=== PATIENT | male | born 1970 | race Caucasian/White ===

== ENCOUNTER 2017-10-10 17:02 | Emergency (ER) | payer SELFPAY ==
[~2017-10-10 17:02] MED LIST: AMLO5 PO; LISI40TA PO; PROT40TA PO; ZOFR4TAB3 SL
[2017-10-10 17:15] VITALS: BP 218/145; PULSE 104; RESP 18; TEMP 98.7; O2SAT 98
[2017-10-10 18:45] LABS: ALBUMIN 3.4 GM/DL (3.4-5.0); ALT (GPT) 32 U/L (12-78); AST (GOT) 21 U/L (15-37); BLOOD UREA NITROGEN 23 MG/DL (7-18); CALCIUM 9.1 MG/DL (8.5-10.1); CHLORIDE 103 MEQ/L (98-107); CREATININE 1.49 MG/DL (0.60-1.30); GLOMERULAR FILTRATION RATE 50 ML/MIN (>89); GLUCOSE,RANDOM 124 MG/DL (74-106); SODIUM (NA) 139 MEQ/L (136-145)
[2017-10-10 18:50] LABS: ALKALINE PHOSPHATASE 89 U/L (45-117); TOTAL BILIRUBIN ADULT 0.3 MG/DL (0.2-1.0); TOTAL PROTEIN 7.2 GM/DL (6.4-8.2)
[2017-10-10 19:49] LABS: AUTOMATED NEUTROPHIL # 8.1 TH/MM3 (1.8-7.7); BASOPHIL % 0.2 % (0.0-2.0); EOSINOPHIL # 0.2 TH/MM3 (0-0.4); EOSINOPHIL % 1.6 % (0.0-4.0); HEMATOCRIT 44.1 % (39.0-51.0); HEMOGLOBIN 14.8 GM/DL (13.0-17.0); LYMPH % 11.8 % (9.0-44.0); LYMPHOCYTE # 1.2 TH/MM3 (1.0-4.8); MEAN CELL VOLUME 88.1 FL (80.0-100.0); MEAN CORPUSCULAR HEMOGLOBIN 29.6 PG (27.0-34.0); MEAN CORPUSCULAR HGB CONC 33.6 % (32.0-36.0); MEAN PLATELET VOLUME 9.7 FL (7.0-11.0); MONO % 5.6 % (0.0-8.0); MONOCYTE # 0.6 TH/MM3 (0-0.9); NEUT % 80.8 % (16.0-70.0); PLATELET COUNT 265 TH/MM3 (150-450); RED CELL DISTRIBUTION WIDTH 13.7 % (11.6-17.2); WHITE BLOOD COUNT 10.1 TH/MM3 (4.0-11.0)
[2017-10-10] MEDS ORDERED: CEPHALEXIN MONOHYDRATE 500 MG CAP PO ONE (20:15)
[2017-10-10] MEDS ORDERED: SULFAMETHOXAZOLE-TRIMETHOPRIM DS 800-160 MG TAB PO ONE (20:15)
[2017-10-10] MEDS ORDERED: BACT800T5 PO (20:21)
[2017-10-10] MEDS ORDERED: CEPH-460 PO (20:21)
--- NOTE | 2017-10-10 20:21 | PD ---
HPI Chief Complaint: Skin Problem Time Seen by Provider: 20:01 Travel History International Travel<30 days: No Contact w/Intl Traveler<30days: No Traveled to known affect area: No History of Present Illness HPI 47-year-old male here for evaluation of painful infection to his right medial thigh. The patient reports that it started about a week ago as a small pimple. He has squeezed the area and it has gradually increased in size. He has had subjective fevers and chills. He is not diabetic and does not take any medications. Pain is moderate, constant, worse with movements and palpation. He has taken Advil with mild relief of symptoms. [facility] Past Medical History Diminished Hearing: No Hypertension: Yes Immunizations Current: Yes Past Surgical History Appendectomy: Yes Social History Alcohol Use: Yes (OCCASIONAL) Tobacco Use: No Substance Use: No Allergies-Medications (Allergen,Severity, Reaction): Coded Allergies: No Known Allergies (Verified Adverse Reaction, Unknown, 10/10/17) Reported Meds & Prescriptions Reported Meds & Active Scripts Active No Active Prescriptions or Reported Medications Review of Systems Except as stated in HPI: all other systems reviewed are Neg Physical Exam Narrative GENERAL: Well-developed, well-nourished, audible, no apparent distress. SKIN: Right mid/anterior/medial thigh with a 6 x 7 cm area of erythema with central induration with an open wound that has been draining spontaneously. There is no fluctuance. No crepitus. No red streaks. This area was evaluated using a bedside linear ultrasound probe and shows cobblestoning which is consistent with cellulitis, no drainable fluid collection. HEAD: Atraumatic. Normocephalic. EYES: Pupils equal and round. No scleral icterus. No injection or drainage. ENT: Mucous membranes pink and moist. CARDIOVASCULAR: Regular rate and rhythm. RESPIRATORY: No accessory muscle use. Clear to auscultation. Breath sounds equal bilaterally. MUSCULOSKELETAL: No obvious deformities. No clubbing. No cyanosis. No edema. NEUROLOGICAL: Awake and alert. No obvious cranial nerve deficits. Motor grossly within normal limits. Normal speech. PSYCHIATRIC: Appropriate mood and affect; insight and judgment normal. Data Data Last Documented VS Vital Signs Date Time Temp Pulse Resp B/P (MAP) Pulse Ox O2 Delivery O2 Flow Rate FiO2 10/10/17 20:08 20 10/10/17 17:15 98.7 104 218/145 (169) 98 Orders Orders Complete Blood Count With Diff (10/10/17 17:18) Comprehensive Metabolic Panel (10/10/17 17:18) Sulfamet-Trimeth Ds 800-160 Mg (Bactrim (10/10/17 20:15) Cephalexin (Keflex) (10/10/17 20:15) Labs Laboratory Tests Test 10/10/17 17:48 White Blood Count 10.1 TH/MM3 Red Blood Count 5.00 MIL/MM3 Hemoglobin 14.8 GM/DL Hematocrit 44.1 % Mean Corpuscular Volume 88.1 FL Mean Corpuscular Hemoglobin 29.6 PG Mean Corpuscular Hemoglobin Concent 33.6 % Red Cell Distribution Width 13.7 % Platelet Count 265 TH/MM3 Mean Platelet Volume 9.7 FL Neutrophils (%) (Auto) 80.8 % Lymphocytes (%) (Auto) 11.8 % Monocytes (%) (Auto) 5.6 % Eosinophils (%) (Auto) 1.6 % Basophils (%) (Auto) 0.2 % Neutrophils # (Auto) 8.1 TH/MM3 Lymphocytes # (Auto) 1.2 TH/MM3 Monocytes # (Auto) 0.6 TH/MM3 Eosinophils # (Auto) 0.2 TH/MM3 Basophils # (Auto) 0.0 TH/MM3 CBC Comment DIFF FINAL Differential Comment Blood Urea Nitrogen 23 MG/DL Creatinine 1.49 MG/DL Random Glucose 124 MG/DL Total Protein 7.2 GM/DL Albumin 3.4 GM/DL Calcium Level 9.1 MG/DL Alkaline Phosphatase 89 U/L Aspartate Amino Transf (AST/SGOT) 21 U/L Alanine Aminotransferase (ALT/SGPT) 32 U/L Total Bilirubin 0.3 MG/DL Sodium Level 139 MEQ/L Potassium Level 4.1 MEQ/L Chloride Level 103 MEQ/L Carbon Dioxide Level 28.0 MEQ/L Anion Gap 8 MEQ/L Estimat Glomerular Filtration Rate 50 ML/MIN MDM Medical Decision Making Medical Screen Exam Complete: Yes Emergency Medical Condition: Yes Medical Record Reviewed: Yes Differential Diagnosis Cellulitis, abscess Narrative Course Vital signs reviewed. Patient's blood pressure is 218/185. He is not displaying any signs or symptoms of hypertensive crisis. Patient has a 6 x 7 cm of cellulitis to his right mid/anterior/medial thigh with a central area that appears to have been draining spontaneously with induration centrally, no fluctuance. This area was evaluated using a linear ultrasound probe and shows cobblestoning which is consistent with cellulitis, no drainable fluid collection seen. CBC is essentially unremarkable. CMP is remarkable for BUN 23, creatinine 1.49, GFR 50. Plan at this time is to start the patient on Bactrim and Keflex and have him return to the emergency department in 48 hours for a wound check. I will also provide him information to the [facility] where he should establish with a primary care physician to help him with his blood pressure and any other medical problems. He was advised on when to return to the emergency department sooner. He verbalizes understanding and agreement with plan. Procedures Procedure Narrative Bedside ultrasound: Using the linear ultrasound probe, the area of cellulitis to the patient's right thigh was evaluated and shows cobblestoning which is consistent with cellulitis without any drainable fluid collections. Diagnosis Primary Impression: Cellulitis of right thigh Referrals: [facility] 3 days Additional Instructions: Follow-up with a primary care physician this week. Take antibiotics as prescribed. Return to the emergency department in 2 days for a wound check. Return to the emergency department sooner for worsening symptoms or any other concerns. Scripts Cephalexin (Keflex) 500 Mg Cap 500 MG PO Q8H for Infection, #30 CAP 0 Refills Prov: Kendall Orta MD 10/10/17 Sulfamethoxazole-Trimethoprim (Bactrim DS) 800-160 Mg Tab 1 TAB PO BID for Infection, #20 TAB 0 Refills Prov: Kendall Orta MD 10/10/17 Disposition: 01 DISCHARGE HOME Condition: Stable Kendall Orta MD Oct 10, 2017 20:21
== END 2017-10-10 21:03 | disposition home or self-care (01) ==
LOC: NEPD 17:02
DX: L03.115 Cellulitis of right lower limb (principal); I10 Essential (primary) hypertension
CPT/HCPCS: 80053; 85025; 86403; 87070; 87186; 87205; 99283

== ENCOUNTER 2018-09-14 02:14 | Inpatient (IN) ==
[2018-09-14] MEDS ORDERED: MethylPREDNISolone Sod Succinate Inj 125 MG/2 ML Vial IV.PUSH ONE (02:33)
--- NOTE | 2018-09-14 02:38 | ED ---
HPI General Chief Complaint: Respiratory Symptoms Stated Complaint: Sob Time Seen by Provider: 09/14/18 02:20 Source: patient Mode of arrival: ambulatory Limitations: no limitations History of Present Illness The patient is a 48-year-old male who presents to the emergency department via private vehicle for shortness of breath. The patient has a one-week history of increasing shortness of breath, worse with exertion. The patient does note a history of similar symptoms in the past secondary to bronchitis, however, denies any known history of COPD, CHF, pulmonary embolism, or DVT. The patient does have a history of hypertension, however, does not currently take any medications, he does not have a local primary physician. Symptoms are moderate and progressive over the last week, he does note a dry mostly nonproductive cough with wheezing. The patient denies any current chest pain, nausea, vomiting, diarrhea, abdominal pain, or myalgias. Complaint: Reports shortness of breath Onset (ago): week(s) Context: Reports recent illness Severity: moderate Consistency/Duration: progressively worsening Relieving factors: nothing Exacerbating factors: exertion Known history of: Reports other Associated symptoms: Reports cough Treatment prior to arrival: Reports none Related Data Home oxygen amount: none Home Medications Medication Instructions Recorded Confirmed No Known Home Medications 09/14/18 09/14/18 Allergies Allergy/AdvReac Type Severity Reaction Status Date / Time No Known Allergies Unknown Uncoded 10/10/17 20:06 Review of Systems ROS: all other systems reviewed are negative [facility] Medical History Medical History Asthma (Acute) HTN (hypertension) (Acute) Social History Social History Substance History: Active Abuse Second Hand Smoke Exposure: Yes Smoking Status: Current some day smoker Tobacco Type: Cigarettes How Often Do You Have a Drink Containing Alcohol: 4 or more times a week Recent Travel in [facility] within the Last 8 Weeks: No Recent Out of Country Travel within the Last 8 Weeks: No Substance Abuse Detail Marijuana: Substance Use Status: Active Route Used Substance Abuse: Inhalation Reason for Use: Get High Immunization History Tetanus Immunization: Unsure Exam Narrative Exam Narrative: GENERAL: Awake, alert, 48-year-old male who appears his stated age and was in moderate respiratory distress. Only able to speak in 3-4 word sentences. SKIN: Focused skin assessment warm/dry. HEAD: Atraumatic. Normocephalic. EYES: No injection or drainage. ENT: No nasal bleeding or discharge. Mucous membranes pink and moist. NECK: Trachea midline. No JVD. CARDIOVASCULAR: Regular, tachycardic with a heart rate in the 120s. RESPIRATORY: Tachypnea with a respiratory rate of 26, rhonchi noted with wheezes in all 4 lung orozco. GASTROINTESTINAL: Abdomen soft, non-tender, nondistended. No rebound tenderness. MUSCULOSKELETAL: No obvious deformities. No clubbing. No cyanosis. No edema. Calves are soft bilaterally. NEUROLOGICAL: Awake and alert. No obvious cranial nerve deficits. Motor grossly within normal limits. Normal speech. PSYCHIATRIC: Appropriate mood and affect; insight and judgment normal. Course Initial Documented Vital Signs Temperature 99 F 09/14/18 02:19 Pulse Rate 113 H 09/14/18 02:19 Respiratory Rate 36 H 09/14/18 02:19 Blood Pressure 218/140 H 09/14/18 02:19 Pulse Oximetry 87 L 09/14/18 02:19 Last Documented Vital Signs Temperature 99 F 09/14/18 02:19 Pulse Rate 98 H 09/14/18 03:30 Respiratory Rate 20 09/14/18 03:30 Blood Pressure 168/96 H 09/14/18 03:30 Pulse Oximetry 96 09/14/18 03:30 Medical Decision Making [facility] Narrative Medical decision making narrative: IV was established, labs are drawn and sent, and the patient was placed on cardiac telemetry monitoring and continuous pulse oximetry monitoring. Patient was administered Solu-Medrol 125 mg intravenously and duo nebs x3. Chest x-ray was obtained. Chest x-ray reveals bilateral interstitial infiltrates. Troponin was elevated at 0.07. BNP was minimally elevated in the 200s. D-dimer was greater than 2, therefore, CTA pulmonary angiogram was ordered. CTA pulmonary angiogram reveals diffuse bilateral interstitial infiltrates with enlarged lymph nodes, may be reactive. Therefore , patient will be treated for pneumonia with Rocephin and Zithromax. Blood cultures and lactic acid were sent to lab prior to antibiotics. The patient was hypoxic, requiring oxygen at 3 L to maintain an O2 saturation of 95%. Therefore, the on-call medical service was paged for admission. Medical Screen Exam Complete: Yes Emergency Medical Condition: Yes Differential Diagnosis Differential Diagnosis: Differential diagnosis includes bronchitis, pneumonia, congestive heart failure, pleural effusion, pulmonary edema, pulmonary embolism , ACS. Lab Data Result diagrams: 09/14/18 02:40 09/14/18 02:40 Lab Results 09/14/18 09/14/18 09/14/18 Range/Units 02:40 02:40 02:40 WBC 9.5 (4.0-11.0) th/mm3 RBC 4.93 (4.50-5.90) mil/mm3 Hgb 15.3 (13.0-17.0) gm/dL Hct 43.4 (39.0-51.0) % MCV 88.0 (80.0-100.0) fL MCH 31.1 (27.0-34.0) pg MCHC 35.3 (32.0-36.0) % RDW 14.6 (11.6-17.2) % Plt Count 303 (150-450) th/mm3 MPV 8.8 (7.0-11.0) fL Neut % (Auto) 69.1 (16.0-70.0) % Lymph % (Auto) 21.5 (9.0-44.0) % Republic % (Auto) 6.2 (0.0-8.0) % Eos % (Auto) 2.5 (0.0-4.0) % Baso % (Auto) 0.7 (0.0-2.0) % Neut # (Auto) 6.6 (1.8-7.7) th/mm3 Lymph # (Auto) 2.0 (1.0-4.8) th/mm3 Republic # (Auto) 0.6 (0.0-0.9) th/mm3 Eos # (Auto) 0.2 (0.0-0.4) th/mm3 Baso # (Auto) 0.1 (0.0-0.2) th/mm3 WBC Differential . Differential Comment Auto diff final PT 9.9 (9.8-11.6) sec INR 1.0 Ratio APTT 27.1 (23.4-31.7) sec D-Dimer Quant (PE/DVT) 2.10 H (0.00-0.50) mg/L FEU Sodium 140 (136-145) meq/L Potassium 3.4 L (3.5-5.1) meq/L Chloride 108 H (98-107) meq/L Carbon Dioxide 25.6 (21.0-32.0) meq/L Anion Gap 6 (5-15) meq/L BUN 28 H (7-18) mg/dL Creatinine 1.62 H (0.60-1.30) mg/dL Estimated GFR 45 L (>89) mL/min Random Glucose 117 H (74-106) mg/dL Calcium 8.4 L (8.5-10.1) mg/dL Magnesium 2.4 (1.5-2.5) mg/dL Total Bilirubin 0.3 (0.2-1.0) mg/dL AST 68 H (15-37) U/L ALT 63 (12-78) U/L Alkaline Phosphatase 101 (45-117) U/L Total Creatine Kinase 571 H (39-308) U/L CK-MB (CK-2) 4.9 H (0.5-3.6) ng/mL CK-MB (CK-2) % 0.9 (0.0-4.0) % Troponin I 0.07 H (0.02-0.05) ng/mL B-Natriuretic Peptide (0-100) pg/mL Total Protein 7.6 (6.4-8.2) g/dL Albumin 3.7 (3.4-5.0) g/dL 09/14/18 Range/Units 02:40 WBC (4.0-11.0) th/mm3 RBC (4.50-5.90) mil/mm3 Hgb (13.0-17.0) gm/dL Hct (39.0-51.0) % MCV (80.0-100.0) fL MCH (27.0-34.0) pg MCHC (32.0-36.0) % RDW (11.6-17.2) % Plt Count (150-450) th/mm3 MPV (7.0-11.0) fL Neut % (Auto) (16.0-70.0) % Lymph % (Auto) (9.0-44.0) % Republic % (Auto) (0.0-8.0) % Eos % (Auto) (0.0-4.0) % Baso % (Auto) (0.0-2.0) % Neut # (Auto) (1.8-7.7) th/mm3 Lymph # (Auto) (1.0-4.8) th/mm3 Republic # (Auto) (0.0-0.9) th/mm3 Eos # (Auto) (0.0-0.4) th/mm3 Baso # (Auto) (0.0-0.2) th/mm3 WBC Differential Differential Comment PT (9.8-11.6) sec INR Ratio APTT (23.4-31.7) sec D-Dimer Quant (PE/DVT) (0.00-0.50) mg/L FEU Sodium (136-145) meq/L Potassium (3.5-5.1) meq/L Chloride (98-107) meq/L Carbon Dioxide (21.0-32.0) meq/L Anion Gap (5-15) meq/L BUN (7-18) mg/dL Creatinine (0.60-1.30) mg/dL Estimated GFR (>89) mL/min Random Glucose (74-106) mg/dL Calcium (8.5-10.1) mg/dL Magnesium (1.5-2.5) mg/dL Total Bilirubin (0.2-1.0) mg/dL AST (15-37) U/L ALT (12-78) U/L Alkaline Phosphatase (45-117) U/L Total Creatine Kinase (39-308) U/L CK-MB (CK-2) (0.5-3.6) ng/mL CK-MB (CK-2) % (0.0-4.0) % Troponin I (0.02-0.05) ng/mL B-Natriuretic Peptide 289 H (0-100) pg/mL Total Protein (6.4-8.2) g/dL Albumin (3.4-5.0) g/dL Imaging Data Radiologist's impression: Chest X-Ray 09/14/18 02:33 CONCLUSION: Symmetric diffuse interstitial infiltrates Chest CTA 09/14/18 03:22 CONCLUSION: 1. No evidence of pulmonary embolism. 2. Bilateral infiltrates and effusions and hilar and mediastinal toya prominence which may be reactive but should be followed ECG Data EKG Prior to Arrival: No Attestation: I personally reviewed and interpreted this ECG as follows: Interpretation: EKG reveals sinus tachycardia with a heart rate of 114. Nonspecific T wave changes. Discharge Plan Discharge Disposition Patient Disposition: ED Admit(ED Internal Use Only) Discharge Condition Condition: Stable Discharge Details Diagnosis: Bilateral pneumonia, Hypoxia, Elevated troponin Physicians Team ED Provider: Jeremie Weiss Primary Care Provider: Primary Care ShelliKaren Rxs /Orders / Referrals /Forms Prescriptions: No Action No Known Home Medications RF: 0 Status ED Status: Pending Admission
[2018-09-14 02:46] LABS: Baso # (Auto) 0.1 th/mm3 (0.0-0.2); Baso % (Auto) 0.7 % (0.0-2.0); Eos # (Auto) 0.2 th/mm3 (0.0-0.4); Eos % (Auto) 2.5 % (0.0-4.0); Hematocrit 43.4 % (39.0-51.0); Hemoglobin 15.3 gm/dL (13.0-17.0); Lymph % (Auto) 21.5 % (9.0-44.0); Mean Corpuscular HGB Conc 35.3 % (32.0-36.0); Mean Corpuscular Hemoglobin 31.1 pg (27.0-34.0); Mean Platelet Volume 8.8 fL (7.0-11.0); Mono # (Auto) 0.6 th/mm3 (0.0-0.9); Mono % (Auto) 6.2 % (0.0-8.0); Neut # (Auto) 6.6 th/mm3 (1.8-7.7); Neut % (Auto) 69.1 % (16.0-70.0); Platelet Count 303 th/mm3 (150-450); Red Blood Count 4.93 mil/mm3 (4.50-5.90); Red Cell Distribution Width 14.6 % (11.6-17.2); White Blood Count 9.5 th/mm3 (4.0-11.0)
--- NOTE | 2018-09-14 03:04 | XR ---
EXAM DATE: 09/14/2018 3:01 AM EST AGE/SEX: 48 years / Male INDICATIONS: Difficulty breathing today. CLINICAL DATA: This is the patient's initial encounter. Patient reports that signs and symptoms have been present for 1 day and indicates a pain score of 0/10. MEDICAL/SURGICAL HISTORY: None. None. [place] [facility] [place]. . FINDINGS: Symmetric diffuse bilateral interstitial infiltrates. No evidence of effusion. Cardiac contours are s atisfactory and stable. CONCLUSION: Symmetric diffuse interstitial infiltrates Electronically signed by: Bulmaro Dejesus MD Board Certified Radiologist 09/14/2018 3:03 AM EST
[2018-09-14 03:07] LABS: Activated Partial Thrombo Time 27.1 sec (23.4-31.7); Prothrombin Time 9.9 sec (9.8-11.6)
[2018-09-14 03:08] LABS: D-Dimer 2.1 mg/L FEU (0.00-0.50)
[2018-09-14 03:15] LABS: Alanine Aminotransferase 63 U/L (12-78); Albumin 3.7 g/dL (3.4-5.0); Anion Gap 6 meq/L (5-15); Aspartate Aminotransferase 68 U/L (15-37); Blood Urea Nitrogen 28 mg/dL (7-18); Calcium 8.4 mg/dL (8.5-10.1); Carbon Dioxide 25.6 meq/L (21.0-32.0); Chloride 108 meq/L (98-107); Glomerular Filtration Rate 45 mL/min (>89); Glucose,Random 117 mg/dL (74-106); Magnesium 2.4 mg/dL (1.5-2.5); Potassium 3.4 meq/L (3.5-5.1); Sodium 140 meq/L (136-145)
[2018-09-14 03:19] LABS: Alkaline Phosphatase 101 U/L (45-117); Creatine Kinase 571 U/L (39-308); Total Protein 7.6 g/dL (6.4-8.2); Troponin I 0.07 ng/mL (0.02-0.05)
[2018-09-14 03:31] LABS: CKMB Percent 0.9 % (0.0-4.0); Creatine Kinase MB 4.9 ng/mL (0.5-3.6)
--- NOTE | 2018-09-14 05:27 | CT ---
EXAM DATE: 09/14/2018 3:54 AM EST AGE/SEX: 48 years / Male INDICATIONS: Chest pain, shortness of breath. CLINICAL DATA: This is the patient's initial encounter. Patient reports that signs and symptoms have been present for 1 day and indicates a pain score of 10/10. MEDICAL/SURGICAL HISTORY: Asthma. Hypertension. None. RADIATION DOSE: 10.62 CTDI (mGy) COMPARISON: . TECHNIQUE: Volumetric scanning was performed using a multi-row detector CT scanner during bolus infu yareli of 50 ml Visipaque 320 (iodixanol) nonionic water-soluble contrast as a single exam dose. The d palak was post processed with a variety of visualization algorithms including full volume maximum inten sity projection and sliding thin slab reformation. Using automated exposure control and adjustment o f the mA and/or kV according to patient size, radiation dose was kept as low as reasonably achievable to obtain optimal diagnostic quality images. DICOM format image data is available electronically fo r review and comparison. FINDINGS: Pulmonary Arteries: No filling defects are seen in the pulmonary arteries out to the subsegmental ve ssels. The left and right pulmonary arteries are normal in diameter. Lung: Fairly symmetric primarily central groundglass parenchymal opacities. Effusion: Small bilateral Mediastinum: Moderate prominence of central mediastinal lymph nodes and mild prominence of bilateral hilar toya tissue. Other: The axilla is unremarkable. CONCLUSION: 1. No evidence of pulmonary embolism. 2. Bilateral infiltrates and effusions and hilar and mediastinal toya prominence which may be react natasha but should be followed Electronically signed by: Bulmaro Dejesus MD Board Certified Radiologist 09/14/2018 5:26 AM EST
[2018-09-14] MEDS ORDERED: Azithromycin Inj 500 MG in Sodium Chlor 0.9% Inj 250 ML IV.SIG ONE (05:35)
[2018-09-14] MEDS ORDERED: Acetaminophen 325 MG Tablet PO PRN (06:19)
[2018-09-14 07:34] LABS: Troponin I 0.07 ng/mL (0.02-0.05)
[2018-09-14 07:46] LABS: Creatine Kinase MB 4.2 ng/mL (0.5-3.6)
--- NOTE | 2018-09-14 14:19 | P.HPIM ---
History of Present Illness Primary Care Physician: No Primary Care Physician Chief Complaint: SOB History of Present Illness: This is a 48-year-old male with history of asthma and hypertension presenting with shortness of breath for about a week, associated with exertion, cough productive with yellowish to greenish sputum, orthopnea, nocturnal dyspnea but no note of fever, chills, muscle ache, nausea, vomiting, chest pain, bilateral lower extremity swelling or palpitations. There is no history of COPD, CHF or PE. Patient is a current smoker, about 10 sticks per day. No previous history of ID or arrhythmia. Patient previously had appendicitis and lower extremity surgery. Father of a heart attack Patient current smoker, 10 cigarettes a day, drinks alcohol on the weekend, about 1 pack. Inpatient Certification Inpatient Certification: I certify that the inpatient services were ordered in accordance with Medicare regulations governing the order. This includes certification that hospital inpatient services are reasonable and necessary and in the case of services not specified as inpatient-only under 42 CFR 419.22(n), that they are appropriately provided as inpatient services in accordance to with the 2-midnight benchmark under 43 CFR 412.3(e) Estimated Total Length of Stay (Days): 2 Plans for Post Hospital Care: Home Review of Systems Review of Systems: all other systems reviewed are negative [facility] Medical History Medical History Asthma (Acute) HTN (hypertension) (Acute) Social History Social History Substance History: Active Abuse Second Hand Smoke Exposure: Yes Smoking Status: Current some day smoker Tobacco Type: Cigarettes How Often Do You Have a Drink Containing Alcohol: 4 or more times a week Recent Travel in [facility] within the Last 8 Weeks: No Recent Out of Country Travel within the Last 8 Weeks: No Substance Abuse Detail Marijuana: Substance Use Status: Active Route Used Substance Abuse: Inhalation Reason for Use: Get High Immunization History Tetanus Immunization: Unsure Medications and Allergies Allergies Allergy/AdvReac Type Severity Reaction Status Date / Time No Known Allergies Allergy Verified 09/14/18 10:19 Home Medications Medication Instructions Recorded Confirmed Type No Known Home Medications 09/14/18 09/14/18 History Active Medications: Active Medications Acetaminophen (Tylenol) 650 mg PO Q4H PRN PRN Reason: Temp > 100.4 Albuterol (Duoneb Neb (Araseli)) 1 ampul NEB Q6HR ALT NEB ARASELI Last Admin: 09/14/18 10:21 Dose: 1 ampul Enalaprilat (Vasotec Inj) 1.25 mg IV.PUSH Q6H PRN PRN Reason: SBP>160, DBP>90 Azithromycin 500 mg/ Sodium (Chloride) 250 mls @ 250 mls/hr IV.SIG Q24H ARASELI Ceftriaxone Sodium 1,000 mg/ (Sodium Chloride) 100 mls @ 200 mls/hr IV.SIG Q24H ARASELI Ondansetron HCl (Zofran Inj) 4 mg IV.PUSH Q6H PRN PRN Reason: NAUSEA OR VOMITING Sodium Chloride (Ns Flush) 2 ml IV.FLUSH PRN PRN PRN Reason: FLUSH AFTER USING IV ACCESS Sodium Chloride (Ns Flush) 2 ml IV.FLUSH BID ARASELI Last Admin: 09/14/18 08:14 Dose: Not Given Physical Exam Vital signs: Vital Signs 09/14/18 02:19 09/14/18 02:23 09/14/18 02:30 Temperature 99 F Pulse Rate 113 H 112 H Respiratory Rate 36 H 28 H 26 H Blood Pressure 218/140 H Pulse Oximetry 87 L 99 09/14/18 02:33 09/14/18 03:00 09/14/18 03:30 Temperature Pulse Rate 108 H 98 H Respiratory Rate 20 20 Blood Pressure 186/96 H 168/96 H Pulse Oximetry 95 97 96 09/14/18 06:18 09/14/18 08:00 09/14/18 08:13 Temperature Pulse Rate 90 94 H 82 Respiratory Rate 18 16 Blood Pressure 163/92 H 166/94 H Pulse Oximetry 99 98 09/14/18 10:24 09/14/18 10:25 09/14/18 11:45 Temperature 97.8 F Pulse Rate 60 88 Respiratory Rate 18 19 Blood Pressure 158/94 H Pulse Oximetry 97 97 Intake & Output 09/13/18 09/14/18 09/14/18 18:59 06:59 18:59 Intake Total 100 / 100 250 / 250 Output Total 650 / 650 Balance -550 / -550 250 / 250 Weight 88.451 kg Intake: IV 100 / 100 250 / 250 Azithromycin Inj 500 MG In NS 250 / 250 Inj 250 ML @ 250 mls/hr IV.SIG ONCE ONE Rx#:[id number] Rocephin Inj 1,000 MG In NS Inj 100 / 100 100 ML @ 200 mls/hr IV.SIG ONCE ONE Rx#:[id number] Output: Urine 650 / 650 Narrative: In mild respiratory distress, coughing Anicteric, pink conjunctival, pupils equal round reactive No JVD Regular rate and rhythm, no murmurs Bilateral crackles on bases, no wheezing. Abdomen soft nontender No edema Alert awake and oriented x3, no cranial nerve deficits. Results Labs CBC & Chem 7: 09/14/18 02:40 09/14/18 02:40 Imaging Impressions Chest X-Ray 09/14/18 02:33 CONCLUSION: Symmetric diffuse interstitial infiltrates Chest CTA 09/14/18 03:22 CONCLUSION: 1. No evidence of pulmonary embolism. 2. Bilateral infiltrates and effusions and hilar and mediastinal toya prominence which may be reactive but should be followed Caprini VTE Risk Assessment Caprini VTE Risk Assessment: Moderate/High Risk (score >= 2) Caprini Risk Assessment Model: Point Value = 1 Point Value = 2 Point Value = 3 Point Value = 5 Age 41-60 Minor surgery BMI > 25 kg/m2 Swollen legs Varicose veins or History of unexplained or recurrent spontaneous Oral contraceptives or hormone replacement Sepsis (< 1 month) Serious lung disease, including pneumonia (< 1 month) Abnormal pulmonary function Acute myocardial infarction Congestive heart failure (< 1 month) History of inflammatory bowel disease Medical patient at bed rest Age 61-74 Arthroscopic surgery Major open surgery (> 45 min) Laparoscopic surgery (> 45 min) Malignancy Confined to bed (> 72 hours) Immobilizing plaster cast Central venous access Age >= 75 History of VTE Family history of VTE Factor V Leiden Prothrombin [id number] Lupus anticoagulant Anticardiolipin antibodies Elevated serum homocysteine Heparin-induced thrombocytopenia Other congenital or acquired thrombophilia Stroke (< 1 month) Elective arthroplasty Hip, pelvis, or leg fracture Acute spinal cord injury (< 1 month) Prophylaxis Regimen: Total Risk Factor Score Risk Level Prophylaxis Regimen 0-1 Low Early ambulation 2 Moderate Order ONE of the following: *Sequential Compression Device (SCD) *Heparin 5000 units SQ BID 3-4 Higher Order ONE of the following medications: *Heparin 5000 units SQ TID *Enoxaparin/Lovenox 40 mg SQ daily (WT < 150 kg, CrCl > 30 mL/min) *Enoxaparin/Lovenox 30 mg SQ daily (WT < 150 kg, CrCl > 10-29 mL/min) *Enoxaparin/Lovenox 30 mg SQ BID (WT < 150 kg, CrCl > 30 mL/min) AND/OR *Sequential Compression Device (SCD) 5 or more Highest Order ONE of the following medications: *Heparin 5000 units SQ TID (Preferred with Epidurals) *Enoxaparin/Lovenox 40 mg SQ daily (WT < 150 kg, CrCl > 30 mL/min) *Enoxaparin/Lovenox 30 mg SQ daily (WT < 150 kg, CrCl > 10-29 mL/min) *Enoxaparin/Lovenox 30 mg SQ BID (WT < 150 kg, CrCl > 30 mL/min) AND *Sequential Compression Device (SCD) Assessment and Plan Plan This is a 48-year-old male with history of asthma and hypertension presenting with a one-week history of shortness of breath Most likely congestive heart failure, rule out pneumonia-no leukocytosis, chest x-ray positive for diffuse interstitial infiltrates, CTA showed effusion, bilateral infiltrates, and nodularities, no pulmonary embolism. BNP is 289. Will treat as CHF, rule out pneumonia. EKG showed sinus rhythm, possible left sided ischemia. Serial troponin and EKG. Check echocardiogram, start diuresis, monitor urine output, flu negative. Empiric Levaquin for now, will discontinue if echocardiogram comes back positive. No lactic acidosis. Check troponin x3. Acute renal failure-could be cardiorenal versus dehydration, good response to Lasix, patient has 3 bottles of clear urine at bedside after 40 mg of Lasix. We will continue to give Lasix twice a day. Monitor BMP, check ultrasound of the kidneys. Hypertension-start metoprolol AST elevation-could be from congestive hepatopathy, recheck in a few days. Hypokalemia-replace and recheck tomorrow, check magnesium. DVT prophylaxis: Heparin
[2018-09-14 14:58] LABS: Troponin I 0.03 ng/mL (0.02-0.05)
[2018-09-14] MEDS ORDERED: Potassium Chloride Liq 20 MEQ/15 ML UDC PO ONE (15:00)
--- NOTE | 2018-09-14 15:01 | US ---
EXAM DATE: 09/14/2018 2:57 PM EST AGE/SEX: 48 years / Male INDICATIONS: Elevated lab values. CLINICAL DATA: This is the patient's initial encounter. Patient reports that signs and symptoms have been present for 1 day and indicates a pain score of 1/10. MEDICAL/SURGICAL HISTORY: Asthma. Hypertension. None. COMPARISON: [facility] [place]/O CONTRAST, 04/10/2015. . MEASUREMENTS: Right Kidney:__11.1 x 5.7 x 4.8 cm Left Kidney:__9.6 x 4.1 x 5.5 cm FINDINGS: Right Kidney: Normal echogenicity and cortical thickness. No mass or hydronephrosis. Left Kidney: Normal echogenicity and cortical thickness. No mass or hydronephrosis. Bladder: Within normal limits given the degree of distension. Other: None. CONCLUSION: 1. Negative renal sonogram. Electronically signed by: Ramon Beebe MD Board Certified Radiologist 09/14/2018 2:59 PM EST
[2018-09-14 15:10] LABS: CKMB Percent 1.1 % (0.0-4.0); Creatine Kinase MB 3.5 ng/mL (0.5-3.6)
--- NOTE | 2018-09-14 15:34 | ECG ---
Date Performed: 09/14/2018 Time Performed: 14:27:43 PTAGE: 48 years EKG: Sinus rhythm NONSPECIFIC T-WAVE ABNORMALITY BORDERLINE ECG No significant change from prior electrocardiogram. PREVIOUS TRACING : 09/14/2018 06.49 DOCTOR: Qamar Cardenas Interpretating Date/Time 09/14/2018 15:32:50
--- NOTE | 2018-09-14 16:21 | ECG ---
Date Performed: 09/14/2018 Time Performed: 02:41:32 PTAGE: 48 years EKG: SINUS TACHYCARDIA POSSIBLE LEFT ATRIAL ENLARGEMENT NONSPECIFIC T-WAVE ABNORMALITY ABNORMAL RHYTHM ECG Compared to PREVIOUS TRACING , the sinus tachycardia is new, the minimal nonspecific ST-T wave change s are new. PREVIOUS TRACIN04/11/2015 01.13 DOCTOR: Rosa Rose Interpretating Date/Time 09/14/2018 16:20:26
--- NOTE | 2018-09-14 16:23 | ECG ---
Date Performed: 09/14/2018 Time Performed: 06:49:35 PTAGE: 48 years EKG: Sinus rhythm POSSIBLE LEFT ATRIAL ENLARGEMENT MODERATE T-WAVE ABNORMALITY, CONSIDER LATERAL ISCHEMIA PROBABLE LEF T VENTRICULAR HYPERTROPHY ABNORMAL ECG Compared to PREVIOUS TRACING , the sinus tachycardia has resolved. There has been an increase in the lateral T-wave changes that are probably secondary to LVH. Clinical correlation remains important. [place] EVIOUS TRACIN09/14/2018 02.41 DOCTOR: Rosa Rose Interpretating Date/Time 09/14/2018 16:21:25
[2018-09-14] MEDS: Metoprolol Tartrate 25 MG Tablet PO SCH ×2 (16:32→21:37)
--- NOTE | 2018-09-14 17:02 | ECHRPT ---
Indication: CARDIOMYOPATHY CONCLUSIONS Normal left ventricular size. Mild concentric left ventricular hypertrophy. The left ventricular systolic function is mildly reduced with an estimated ejection fraction in the range of 45- 50%. The left atrial size is mildly dilated. [id number] mitral valve regurgitation. There is trace tricuspid valve regurgitation. BP: / HR: Rhythm: Sinus MEASUREMENTS (Male / Female) Normal Values Technical Quality:Fair 2D ECHO LV Diastolic Diameter PLAX 5.2 cm 4.2 - 5.9 / 3.9 - 5.3 cm LV Systolic Diameter PLAX 4.0 cm IVS Diastolic Thickness 1.3 cm 0.6 - 1.0 / 0.6 - 0.9 cm LVPW Diastolic Thickness 1.3 cm 0.6 - 1.0 / 0.6 - 0.9 cm LV Relative Wall Thickness 0.5 RV Internal Dim ED PLAX 2.9 cm LVOT Diameter 2.2 cm Aortic Root Diameter 3.0 cm LA Systolic Diameter LX 4.4 cm 3.0 - 4.0 / 2.7 - 3.8 cm M-MODE AV Cusp Separation MM 1.8 cm DOPPLER LVOT Peak Velocity 85.7 cm/s LVOT Peak Gradient 2.9 mmHg LVOT Velocity Time Integral 18.4 cm Mitral E Point Velocity 119.0 cm/s LV E' Lateral Velocity 7.0 cm/s Mitral E to LV E' Lateral Ratio 17.0 LV E' Septal Velocity 8.3 cm/s Mitral E to LV E' Septal Ratio 14.4 FINDINGS LEFT VENTRICLE Normal left ventricular size. Mild concentric left ventricular hypertrophy. The left ventricular systolic function is mildly reduced with an estimated ejection fraction in the range of 45- 50%. RIGHT VENTRICLE Normal right ventricular size and systolic function. LEFT ATRIUM The left atrial size is mildly dilated. RIGHT ATRIUM The right atrial size is normal. ATRIAL SEPTUM No atrial level shunt is demonstrated by color flow Doppler interrogation. AORTA The aortic root and proximal ascending aorta are normal in size on limited imaging. MITRAL VALVE [id number] mitral valve regurgitation. AORTIC VALVE Trileaflet aortic valve. No aortic valve stenosis or regurgitation. TRICUSPID VALVE There is trace tricuspid valve regurgitation. PULMONARY VALVE No pulmonary valve regurgitation or stenosis. VESSELS The inferior vena cava is normal in size. PERICARDIUM No pericardial effusion. Jose Antonio Contreras MD, FACC, [facility] [place] (Electronically Signed) Final Date:14 September 2018 17:00
[2018-09-14] MEDS: Heparin - SQ 10,000 UNITS/ML Vial SQ SCH (21:39)
--- NOTE | 2018-09-14 21:58 | ECG ---
Date Performed: 09/14/2018 Time Performed: 20:08:18 PTAGE: 48 years EKG: Sinus rhythm LEFT VENTRICULAR HYPERTROPHY AND ST-T CHANGE ABNORMAL ECG No significant change from prior electroca rdiogram. PREVIOUS TRACING : 09/14/2018 14.27 DOCTOR: Qamar Cardenas Interpretating Date/Time 09/14/2018 21:58:17
[2018-09-15 02:39] LABS: Baso % (Auto) 0.4 % (0.0-2.0); Eos % (Auto) 0.2 % (0.0-4.0); Hematocrit 42.7 % (39.0-51.0); Hemoglobin 14.6 gm/dL (13.0-17.0); Lymph # (Auto) 1.4 th/mm3 (1.0-4.8); Lymph % (Auto) 14.8 % (9.0-44.0); Mean Corpuscular HGB Conc 34.1 % (32.0-36.0); Mean Corpuscular Hemoglobin 29.6 pg (27.0-34.0); Mean Corpuscular Volume 86.7 fL (80.0-100.0); Mean Platelet Volume 8.8 fL (7.0-11.0); Mono # (Auto) 0.8 th/mm3 (0.0-0.9); Mono % (Auto) 8.2 % (0.0-8.0); Neut # (Auto) 7.2 th/mm3 (1.8-7.7); Neut % (Auto) 76.4 % (16.0-70.0); Platelet Count 279 th/mm3 (150-450); Red Blood Count 4.93 mil/mm3 (4.50-5.90); Red Cell Distribution Width 14.9 % (11.6-17.2); White Blood Count 9.4 th/mm3 (4.0-11.0)
[2018-09-15 02:45] LABS: Calcium 8.6 mg/dL (8.5-10.1); Magnesium 2.5 mg/dL (1.5-2.5); Potassium 3.7 meq/L (3.5-5.1)
[2018-09-15 02:49] LABS: Troponin I 0.03 ng/mL (0.02-0.05)
[2018-09-15] MEDS: Heparin - SQ 10,000 UNITS/ML Vial SQ SCH ×3 (06:16→21:36)
[2018-09-15] MEDS ORDERED: Azithromycin Inj 500 MG in Sodium Chlor 0.9% Inj 250 ML IV.SIG SCH (07:00)
[2018-09-15] MEDS ORDERED: Influenza (Quadrivalent) Vaccine 0.5 ML Syringe IM ONE (09:00)
[2018-09-15] MEDS ORDERED: levoFLOXacin 750 MG Tablet PO SCH (09:00)
--- NOTE | 2018-09-15 09:58 | P.PNIM ---
Subjective Interval history: No urine output monitoring recorded in the chart. Per patient , he has been urinating a lot. No nausea or vomiting. Shortness of breath a little better, no chest pain, no palpitations. Cough is improving. Physical Exam Vital signs: Vital Signs 09/14/18 10:24 09/14/18 10:25 09/14/18 11:45 Temperature 97.8 F Pulse Rate 60 88 Respiratory Rate 18 19 Blood Pressure 158/94 H Pulse Oximetry 97 97 09/14/18 16:10 09/14/18 20:00 09/14/18 20:23 Temperature 97.9 F 98.2 F Pulse Rate 95 H 91 H Respiratory Rate 19 16 Blood Pressure 159/83 H 141/85 H Pulse Oximetry 96 96 95 09/15/18 00:00 09/15/18 03:14 09/15/18 04:00 Temperature 97.6 F 97.9 F Pulse Rate 75 74 82 Respiratory Rate 18 18 20 Blood Pressure 155/92 H 142/80 H Pulse Oximetry 95 99 Intake & Output 09/14/18 09/15/18 09/15/18 18:59 06:59 18:59 Intake Total 250 / 250 450 / 450 Balance 250 / 250 450 / 450 Intake: IV 250 / 250 Azithromycin Inj 500 MG In NS 250 / 250 Inj 250 ML @ 250 mls/hr IV.SIG ONCE ONE Rx#:[id number] Oral 450 / 450 Other: # Voids 3 Narrative: Not in distress, on nasal cannula. Anicteric, pink conjunctival, pupils equal round reactive No JVD Regular rate and rhythm, no murmurs Bilateral crackles better, mostly on the left at this point. Abdomen soft nontender No edema Alert awake and oriented x3, no cranial nerve deficits. Results Labs CBC & Chem 7: 09/15/18 02:20 09/15/18 02:20 Labs: Microbiology 09/14/18 05:50 Nasal Wash Influenza Types A,B Antigen - Final Negative for FLU A and B antigen Infection due to influenza A or B cannot be ruled out since the antigen present in the sample may be below the detection limit of the test. Imaging Imaging: Impressions Abdomen/Bladder Ultrasound 09/14/18 00:00 CONCLUSION: 1. Negative renal sonogram. Assessment and Plan Plan This is a 48-year-old male with history of asthma and hypertension presenting with a one-week history of shortness of breath Most likely congestive heart failure, rule out pneumonia-no leukocytosis, chest x-ray positive for diffuse interstitial infiltrates, CTA showed effusion, bilateral infiltrates, and nodularities, no pulmonary embolism. BNP is 289. Will treat as CHF, rule out pneumonia. EKG showed sinus rhythm, possible left sided ischemia. Serial troponin and EKG. Echocardiogram showed mild LVH, ejection fraction 45-50%, mildly dilated left atrium. Urine output monitoring not done. No lactic acidosis. Troponin negative x3. Check chest x-ray, stop Levaquin, doubt pneumonia with good response to Lasix. Might need ischemic workup if this is from congestive heart failure. Consult cardiology. Acute renal failure-could be cardiorenal versus dehydration, good response to Lasix, continue Lasix twice a day. Creatinine stable. Ultrasound of the kidneys negative. Hypertension-blood pressure better on metoprolol, continue for now. AST elevation-could be from congestive hepatopathy, recheck LFTs/CMP Hypokalemia-replace, recheck tomorrow. Magnesium is within normal limits. DVT prophylaxis: Heparin Progress Note: Quality VTE Deep Vein Thrombosis/Pulmonary Embolism Present on Admission: No
[2018-09-15] MEDS: Metoprolol Tartrate 25 MG Tablet PO SCH ×2 (12:11→21:36)
--- NOTE | 2018-09-15 14:59 | XR ---
EXAM DATE: 09/15/2018 2:55 PM EST AGE/SEX: 48 years / Male INDICATIONS: . CHF, Effusion. Cough. CLINICAL DATA: This is the patient's initial encounter. Patient reports that signs and symptoms have been present for 1 day and indicates a pain score of 0/10. MEDICAL/SURGICAL HISTORY: None. None. COMPARISON: [facility] – [place], [place]ST 1V SINGLE AP, 09/14/2018. . FINDINGS: AP and lateral views of the chest demonstrate the lungs to be symmetrically aerated without evidence of mass, infiltrate or effusion. The cardiomediastinal contours are unremarkable. Osseous structure s are intact. CONCLUSION: No acute cardiopulmonary disease Electronically signed by: Familia Benitez MD Board Certified Radiologist 09/15/2018 2:57 PM EST
--- NOTE | 2018-09-15 18:32 | MB ---
cc: Niranjan Villafuerte MD DATE: 09/15/2018 REASON FOR CONSULTATION: Congestive heart failure. HISTORY OF PRESENT ILLNESS: The patient is a 48-year-old male with a history of untreated hypertension, asthma, who presented to the hospital with a 1-week history of increasing shortness of breath, orthopnea, pedal edema, elevated blood pressure. Chest x-ray suggested congestive heart failure, so he was admitted for further evaluation and treatment. He denies any chest discomfort except for a constant sensation of "congestion" for the past week. Intermittently, he has felt lightheaded without syncope or near syncope. He denies paroxysmal nocturnal dyspnea, fevers, palpitations. Recently, he has also had cough, occasionally productive of whitish sputum; infrequently he has noted hemoptysis as well. 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 Since coming into the hospital, his shortness of breath has significantly improved. Blood pressure on presentation was 218/140. PAST MEDICAL HISTORY: 1. Hypertension. 2. Asthma. PAST SURGICAL HISTORY: 1. Right knee surgery. 2. Appendectomy. CARDIAC MEDICATIONS AT HOME: None. CARDIAC MEDICATIONS HERE IN THE HOSPITAL: 1. Furosemide 40 mg IV b.i.d. 2. Heparin 5000 units subcutaneously every 8 hours. 3. Metoprolol tartrate 25 mg p.o. b.i.d. ALLERGIES: NO KNOWN DRUG ALLERGIES. FAMILY HISTORY: There is no significant family history of early myocardial infarction. SOCIAL HISTORY: The patient smokes occasional cigarettes. He drinks alcohol occasionally. REVIEW OF SYSTEMS: As in the history of present illness. Otherwise, negative or noncontributory. He does report an occasional mild to moderate headache chronically. He denies dyspepsia, melena, flu symptoms. Rarely in the past, he has noted bright red blood per rectum, which has never been evaluated. PHYSICAL EXAMINATION: VITAL SIGNS: His blood pressure is 113/63 with a pulse of 77, respirations 16. GENERAL: He is a well-developed, well-nourished, male in no acute distress. NECK: Jugular venous pressure is normal. Carotid pulses are 2+ bilaterally and without bruits. CHEST: Clear lungs orozco. CARDIAC: He has a regular rhythm and rate without S3, S4, or murmur. ABDOMEN: He has a soft, nontender abdomen. Bowel sounds are present. There is no definite hepatosplenomegaly. EXTREMITIES: No clubbing, cyanosis or edema. DIAGNOSTIC DATA: EKG shows normal sinus rhythm, nonspecific T-wave abnormalities. Chest x-ray shows diffuse bilateral infiltrates. Laboratory data includes normal CBC. Potassium 3.7, BUN 27, creatinine 1.63. Troponin 0.07, CK 571, with 0.9% MB fraction. IMPRESSION: Possible congestive heart failure in this 48-year-old male with a history of untreated hypertension, asthma. The precipitating factor for the congestive heart failure may be the elevated blood pressure as well as renal insufficiency. His echocardiogram has been reviewed. His ejection fraction appears to be closer to 55%, rather than 45%-50% reported. In addition, there is at most trace to mild mitral regurgitation, not the mild to moderate mitral regurgitation reported. Finally, there is no definite evidence for diastolic dysfunction on his echo. Overall, there is no evidence for acute coronary syndrome. Some of the chest x-ray and CT findings conceivably could be due to interstitial lung disease. 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 RECOMMENDATIONS: 1. Continue to maintain optimal blood pressure control. Agree with beta priya therapy. Consider changing his furosemide to oral administration. 2. No additional cardiac workup at this time. 3. 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 4. Will follow up as needed. MD MAIKEL Robison/jarek , 06:07 PM , 06:14 PM [email or web address]
[2018-09-16] MEDS: Heparin - SQ 10,000 UNITS/ML Vial SQ SCH ×3 (05:18→22:14)
--- NOTE | 2018-09-16 08:44 | P.PNIM ---
Subjective Interval history: Follow-up for shortness of breath down to 2 L of oxygen, blood pressure elevated 170s-100s. Breathing is better, cough is better. No nausea or vomiting. No chest pain. Physical Exam Vital signs: Vital Signs 09/15/18 11:32 09/15/18 12:00 09/15/18 15:46 Temperature 98.3 F Pulse Rate 93 H 95 H 77 Respiratory Rate 18 22 16 Blood Pressure 113/63 Pulse Oximetry 97 97 09/15/18 16:00 09/15/18 20:00 09/15/18 21:57 Temperature 97.9 F 98.5 F Pulse Rate 90 87 84 Respiratory Rate 16 17 17 Blood Pressure 172/94 H 145/92 H Pulse Oximetry 97 98 97 09/16/18 00:00 09/16/18 01:15 09/16/18 03:51 Temperature 96.7 F L Pulse Rate 82 79 Respiratory Rate 17 15 Blood Pressure 161/93 H 152/90 H Pulse Oximetry 99 09/16/18 04:00 09/16/18 08:00 09/16/18 08:19 Temperature 98 F 97.6 F Pulse Rate 66 71 71 Respiratory Rate 17 18 18 Blood Pressure 163/102 H 171/102 H Pulse Oximetry 99 97 94 L Intake & Output 09/15/18 09/16/18 09/16/18 18:59 06:59 18:59 Intake Total 260 / 260 Output Total 350 / 350 Balance -350 / -350 260 / 260 Weight 88.7 kg Intake: Oral 260 / 260 Output: Urine 350 / 350 Other: # Voids 3 Narrative: Not in distress, on nasal cannula. Anicteric, pink conjunctival, pupils equal round reactive No JVD Regular rate and rhythm, no murmurs Occasional crackles, almost clear, decreased breath sounds symmetric, no wheezing. Abdomen soft nontender No edema Alert awake and oriented x3, no cranial nerve deficits. Results Labs CBC & Chem 7: 09/15/18 02:20 09/16/18 10:57 Labs: Microbiology 09/14/18 05:40 Blood - Peripheral Aerobic Blood Culture - Preliminary No growth in 1 day 09/14/18 05:40 Blood - Peripheral Anaerobic Blood Culture - Preliminary No growth in 1 day 09/14/18 05:45 Blood - Peripheral Aerobic Blood Culture - Preliminary No growth in 1 day 09/14/18 05:45 Blood - Peripheral Anaerobic Blood Culture - Preliminary No growth in 1 day Imaging Imaging: Impressions Chest X-Ray 09/15/18 00:00 CONCLUSION: No acute cardiopulmonary disease Assessment and Plan Plan This is a 48-year-old male with history of asthma and hypertension presenting with a one-week history of shortness of breath Most likely congestive heart failure, rule out pneumonia- no leukocytosis, chest x-ray positive for diffuse interstitial infiltrates, CTA showed effusion, bilateral infiltrates, and nodularities, no pulmonary embolism. BNP is 289. Will treat as CHF, rule out pneumonia, possible etiologies hypertension and renal failure. EKG showed sinus rhythm, possible left sided ischemia. Serial troponin negative. Echocardiogram showed mild LVH, ejection fraction 45-50%, mildly dilated left atrium, cardiology consulted, probably closer to 55% no other than the previously reported numbers. At most trace to mild mitral regurgitation not mild to moderate mitral regurgitation reported. No evidence of diastolic dysfunction. Urine output monitoring not done. No further ischemic workup per cardiology, agreed with blood pressure control. Repeat chest x-ray now normal, rapidly improved which is not characteristic of pneumonia. Stopped Levaquin. Good response to Lasix, switch Lasix to oral. Acute renal failure-could be hypertensive nephropathy, no evidence of CHF. Switch Lasix to once daily today. Ultrasound of the kidneys unremarkable. BMP today, creatinine are relatively stable, recheck BMP tomorrow. Hypertension urgency-blood pressure better but still not optimal, on metoprolol , increase dose today to 50 mg twice a day. Add Norvasc. AST elevation-could be from congestive hepatopathy,. Hypokalemia-replaced, resolved. DVT prophylaxis: Heparin Discharge tomorrow if on room air and blood pressure stable. Progress Note: Quality VTE Deep Vein Thrombosis/Pulmonary Embolism Present on Admission: No
[2018-09-16] MEDS: Metoprolol Tartrate 25 MG Tablet PO SCH ×2 (08:49→22:12)
[2018-09-16 12:21] LABS: Alanine Aminotransferase 33 U/L (12-78); Albumin 3.2 g/dL (3.4-5.0); Anion Gap 6 meq/L (5-15); Aspartate Aminotransferase 11 U/L (15-37); Blood Urea Nitrogen 29 mg/dL (7-18); Carbon Dioxide 29.2 meq/L (21.0-32.0); Chloride 105 meq/L (98-107); Glomerular Filtration Rate 41 mL/min (>89); Glucose,Random 142 mg/dL (74-106); Magnesium 2.3 mg/dL (1.5-2.5); Potassium 3.7 meq/L (3.5-5.1); Sodium 140 meq/L (136-145)
[2018-09-16 12:24] LABS: Alkaline Phosphatase 66 U/L (45-117); Total Protein 7.1 g/dL (6.4-8.2)
[2018-09-16] MEDS: amLODIPine 5 MG Tablet PO SCH (16:27)
[2018-09-16] MEDS: Furosemide 40 MG Tablet PO SCH (16:27)
[2018-09-17] MEDS: Heparin - SQ 10,000 UNITS/ML Vial SQ SCH (06:03)
--- NOTE | 2018-09-17 07:59 | P.PNIM ---
Subjective Interval history: f/u; CHF in no acute distress. sob has much improved and wants to go home. no pain or fever. Physical Exam Vital signs: Vital Signs 09/16/18 08:00 09/16/18 08:19 09/16/18 12:00 Temperature 97.6 F 98.3 F Pulse Rate 77 71 83 Respiratory Rate 18 18 18 Blood Pressure 171/102 H 154/87 H Pulse Oximetry 97 94 L 98 09/16/18 12:54 09/16/18 16:00 09/16/18 19:59 Temperature 97.4 F L Pulse Rate 83 93 H 101 H Respiratory Rate 18 16 17 Blood Pressure 167/101 H Pulse Oximetry 96 98 09/16/18 20:00 09/17/18 00:00 09/17/18 04:00 Temperature 98.5 F 98.3 F 98.2 F Pulse Rate 93 H 76 76 Respiratory Rate 18 18 18 Blood Pressure 152/89 H 158/95 H 163/98 H Pulse Oximetry 97 98 99 09/17/18 04:07 09/17/18 07:52 Temperature Pulse Rate 72 78 Respiratory Rate 18 16 Blood Pressure Pulse Oximetry 98 Intake & Output 09/16/18 09/17/18 09/17/18 18:59 06:59 18:59 Intake Total 260 / 260 Balance 260 / 260 Intake: Oral 260 / 260 Other: # Voids 3 Constitutional no acute distress Routine Respiratory Exam Present CTA bilaterally Routine Cardiovascular Exam Present RRR Routine Abdominal Exam Present soft Routine Extremities Exam Comments: no pedal edema. Routine Neurological Exam Present alert and oriented X3 Results Labs CBC & Chem 7: 09/15/18 02:20 09/16/18 10:57 Labs: Microbiology 09/14/18 05:40 Blood - Peripheral Aerobic Blood Culture - Preliminary No growth in 2 days 09/14/18 05:40 Blood - Peripheral Anaerobic Blood Culture - Preliminary No growth in 2 days 09/14/18 05:45 Blood - Peripheral Aerobic Blood Culture - Preliminary No growth in 2 days 09/14/18 05:45 Blood - Peripheral Anaerobic Blood Culture - Preliminary No growth in 2 days Assessment and Plan Plan This is a 48-year-old male with history of asthma and hypertension presenting with a one-week history of shortness of breath Most likely congestive heart failure, acute diastolic- no leukocytosis, chest x- ray positive for diffuse interstitial infiltrates, CTA showed effusion, bilateral infiltrates, and nodularities, no pulmonary embolism with hilar node promience which might be reactive but needs outpatient follow-up. BNP is 289. treated as CHF EKG showed sinus rhythm, possible left sided ischemia. Serial troponin negative. Echocardiogram showed mild LVH, ejection fraction 45-50%, mildly dilated left atrium, cardiology consulted, probably closer to 55% no other than the previously reported numbers. At most trace to mild mitral regurgitation not mild to moderate mitral regurgitation reported. No evidence of diastolic dysfunction. Urine output monitoring not done. No further ischemic workup per cardiology, agreed with blood pressure control.Good response to Lasix. chronic renal insufficiency; renal function fairly stable. Hypertension urgency-blood pressure better , on metoprolol and Norvasc; f/u as outpatient. AST elevation-could be from congestive hepatopathy,. Hypokalemia-replaced, resolved. DVT prophylaxis: Heparin Discussed Condition With: the patient. Discharge Planning: dc home today after BMP is resulted. see med list. f/u ; pcp. d/w the patient. Progress Note: Quality VTE Deep Vein Thrombosis/Pulmonary Embolism Present on Admission: No
--- NOTE | 2018-09-17 08:04 | P.DS ---
DS: Providers Date of admission: 09/14/18 05:51 Primary care physician: No Primary Care Physician Consults: 09/15/18 13:43 Consult to Cardiology Routine Consulting Provider: Niranjan Villafuerte Does the patient have a Airline Reservationist who follows them?: No Preferred Electron Beam Welding Machine Operator:: Draw Bench Operator Helper Physician Reason for Consultation: newly diagnosed CHF Notified:: Service Spoke with:: FREDDIE Date Notified:: 09/15/18 Time Notified:: 13:48 Ordering Provider: ENRIQUE Brief History from admission: This is a 48-year-old male with history of asthma and hypertension presenting with shortness of breath for about a week, associated with exertion, cough productive with yellowish to greenish sputum, orthopnea, nocturnal dyspnea but no note of fever, chills, muscle ache, nausea, vomiting, chest pain, bilateral lower extremity swelling or palpitations. There is no history of COPD, CHF or PE. Patient is a current smoker, about 10 sticks per day. No previous history of MA or arrhythmia. Patient previously had appendicitis and lower extremity surgery. Father of a heart attack Patient current smoker, 10 cigarettes a day, drinks alcohol on the weekend, about 1 pack. DS: Summary patient was admitted with CHF. he was started on Lasix to which he responded well. he was started on Metoprolol and Amlodipine. otherwise the course in the hospital was uneventful.he will have a follow-up with his pcp. of note he was found to have hilar node prominence which needs outpatient follow-up. Time Spent with Patient Total time spent providing and/or coordinating discharge services: Less than 30 minutes Quality: VTE Deep Vein Thrombosis/Pulmonary Embolism Present on Admission: No Exam Narrative Exam Narrative: patient in no acute distress. S1/S2 heard/ abdomen is soft/ no pedal edema/ bilateral air entry present/ patient is awake and fully oriented. Results Procedures completed during hospitalization: none. Labs on day of discharge: Labs from last 24 hours 09/16/18 09/16/18 10:57 10:51 Sodium 140 Potassium 3.7 Chloride 105 Carbon Dioxide 29.2 Anion Gap 6 BUN 29 H Creatinine 1.78 H Estimated GFR 41 L Random Glucose 142 H Calcium 9.0 Magnesium 2.3 Total Bilirubin 0.3 AST 11 L ALT 33 Alkaline Phosphatase 66 B-Natriuretic Peptide 141 H Total Protein 7.1 Albumin 3.2 L Preliminary micro results at discharge 09/14/18 05:40 Aerobic Blood Culture - Preliminary Blood - Peripheral No growth in 2 days Anaerobic Blood Culture - Preliminary No growth in 2 days 09/14/18 05:45 Aerobic Blood Culture - Preliminary Blood - Peripheral No growth in 2 days Anaerobic Blood Culture - Preliminary No growth in 2 days Impressions ITS Impressions Abdomen/Bladder Ultrasound 09/14/18 00:00 CONCLUSION: 1. Negative renal sonogram. Chest CTA 09/14/18 03:22 CONCLUSION: 1. No evidence of pulmonary embolism. 2. Bilateral infiltrates and effusions and hilar and mediastinal toya prominence which may be reactive but should be followed Chest X-Ray 09/15/18 00:00 CONCLUSION: No acute cardiopulmonary disease Discharge Plan Discharge Disposition Patient Disposition: 01 Discharge Home Discharge Condition Condition: Stable Physicians Team Primary Care Provider: Primary Karen Johnson Attending Provider: Espinoza Phoenix Other Providers: Niranjan Villafuerte Rxs /Orders / Referrals /Forms Prescriptions: New metoprolol tartrate 25 mg Tablet 50 mg PO BID 30 Days Qty: 120 RF: 0 furosemide 40 mg Tablet 40 mg PO DAILY 30 Days Qty: 30 RF: 0 amlodipine [Norvasc] 5 mg Tablet 5 mg PO DAILY 30 Days Qty: 30 RF: 0 No Action No Known Home Medications RF: 0 Referrals: Primary Care Karen Avila [Primary Care Provider] - See Instructions Status ED Status: Left Department
[2018-09-17] MEDS: Metoprolol Tartrate 25 MG Tablet PO SCH (08:26)
[2018-09-17] MEDS: amLODIPine 5 MG Tablet PO SCH (08:26)
[2018-09-17] MEDS: Furosemide 40 MG Tablet PO SCH (08:26)
[2018-09-17 11:40] LABS: Potassium 3.4 meq/L (3.5-5.1)
[2018-09-17 12:15] VITALS: PULSE 71; RESP 16
[2018-09-17 12:17] VITALS: BP 124/79; TEMP 98.9; O2SAT 96
== END 2018-09-17 13:15 | disposition home or self-care (01) | DRG 291 ==
LOC: NEPC 02:14 → NEDA 05:51 → H7ONC 11:21
PROVIDERS: ADMIT Internal Medicine; ATTEND Internal Medicine
CPT/HCPCS: 71010; 71020; 71045; 71046; 71275; 76775; 80048; 80053; 82550; 82552; 83520; 83605; 83735; 83880; 84484; 85025; 85379; 85610; 85730; 87040; 87275; 87276; 87804; 90658; 90686; 90765; 90775; 93005; 93306; 94640; 94664; 94665; 96365; 96375; 99285; J0456; J0696; J1644; J1940; J2930; J7050; Q2038; Q9967